=== PATIENT | male | born 1960 | race Caucasian/White ===

== ENCOUNTER 2016-08-08 11:05 | Emergency (ER) | payer BC ==
--- NOTE | ~2016-08-08 | CO ---
Unit #: [id number] #: [id number] Patient: ANTONETTE CID [id number] [address] [place], [place] [address] [id number] MR#: [id number] NAME: ANTONETTE CID. ROOM: Age: 55 Sex: M Admission Date: 08/08/2016 : 1960 Attending Physician: Gaurav Hill M.D. Primary Care Physician: Nadeem Farrell M.D. CONSULTATION REPORT REASON FOR CONSULTATION Chest pain. HISTORY OF PRESENT ILLNESS The patient is a 55-year-old male with history of remote tobacco use, who presented to the emergency department with complaints of chest pain. The patient states that the pain has been intermittent since Sunday08/05/2016. He had a recent upper respiratory and GI virus, for which he has been following with his primary care physician. He has taken amoxicillin. The patient reports that he had nausea, vomiting, diarrhea, and productive cough. After taking the antibiotic his symptoms improved. He presented today for regular followup and reported to his physician how he has been having intermittent chest pressure since Sunday. The patient states that the pressure lasts 2 to 3 minutes and then spontaneously resolved. He is unaware of any exacerbating or alleviating factors. 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 The patient have one more episode of the chest discomfort this morning prior to his visit with his primary care physician, Dr. Su. He advised the patient to go to the emergency department for further evaluation. PAST MEDICAL HISTORY Kidney stones, history of duodenal ulcer and gastritis in 2003, obstructive sleep apnea with intolerance to CPAP, osteoarthritis. PAST SURGICAL HISTORY He has had right knee surgery, sinus surgery, ureteroscopy with stent and lithotripsy in 09/2010. Tonsillectomy and left hand surgery. SOCIAL HISTORY History of smoking two packs daily and quit approximately 8 months ago. He rarely drinks alcohol. Denies any illicit drug use. He works at [employer] where he is unloading [employer]. FAMILY HISTORY His mother had a permanent pacemaker and brain aneurysm and is 72 years old and living. He has no reported family history of premature coronary artery disease. REVIEW OF SYSTEMS GENERAL: He had recent fevers, chills, nausea, vomiting, diarrhea, and productive cough 1 to 2 weeks ago. The patient took amoxicillin and his symptoms have resolved. HEENT: Denies headaches, vision loss, hearing loss, epistaxis, or Unit #: [id number] #: [id number] Patient: ANTONETTE CID dysphagia. PULMONARY: Cough as stated above. CARDIAC: Chest pain as stated above. No orthopnea or PND, palpitation or tachycardia. GI: As above. No nausea with the chest pain. EXTREMITIES: He does have leg cramps with walking and right knee pain due to arthritis. No swelling. NEURO: No dizziness, presyncope, or syncope. DIAGNOSTIC STUDIES For the current labs and tests. LABORATORY RESULTS: Point of care troponin was less than 0.05 x2. Most recent troponin was at 1305. Sodium 139, potassium 4.1, chloride 102, CO2 of 28, glucose 97, BUN 11, creatinine 0.8, AST 32, ALT 60. White blood cells 6.1, hemoglobin 15.1, hematocrit 45.3, and platelets are 237. CARDIOVASCULAR STUDIES: EKG shows normal sinus rhythm with right bundle-branch block. ASSESSMENT AND PLAN 1. Chest pain. 2. Remote tobacco use (history of two pack per day smoking, quit 8 months ago). 3. Right bundle-branch block. 4. Obstructive sleep apnea, intolerant of CPAP. Mr. Cid's case is discussed with Dr. Nash. We originally planned to monitor serial troponin and perform a Lexiscan Cardiolite in the morning. The patient refuses this stay and states that he will be fired from his job when he misses another day. He does feel he be able to come in for a scheduled outpatient stress test. We will repeat one troponin this afternoon and if this is negative, the patient will be discharged home and will be set up for an outpatient Lexiscan Cardiolite. Dictated by... Elieser Barry. for Hakeem Nash M.D. CMG/carrie TD: 08/09/2016 02:09 JOB #: [id number] CONSULTATION REPORT X X CONSULTATION REPORT
--- NOTE | ~2016-08-08 | EKG ---
PATIENT: ANTONETTE CID UNIT #: [id number] Ventricular Rate: 68 BPM Atrial Rate: 68 BPM P-R Interval: 142 ms QRS Duration: 130 ms Q-T Interval: 436 ms QTC Calculation(Bezet): 463 ms P Austin: 55 degrees Calculated R Austin: 5 degrees Calculated T Austin: 27 degrees Diagnosis Line: Normal sinus rhythm Diagnosis Line: Right bundle branch block Diagnosis Line: Abnormal ECG Diagnosis Line: No previous ECGs available Diagnosis Line: Confirmed by DAMASO MC MD ([id number]) on Diagnosis Line: 08/08/2016 4:15:46 PM INTERPRETING MD: ALEXANDRO VOGT
--- NOTE | ~2016-08-08 | CR72 ---
[facility] A Service of [facility] & [facility] RADIOLOGY TEXT RESULTS PATIENT: ANTONETTE CID LOCATION: [facility] : 60 UNIT #: [id number] AGE: [address]: Gaurav Hill MD SEX: M ORDER DR: [id number] [facility] [address] [place], [place] [address] [id number] E MR#: [id number] Acc #: [id number] NAME: ANTONETTE CID. : 1960 SEX: M STUDY DATE/TIME: 08/08/2016 12:30 UNIT: [facility] ROOM: STUDY DESCRIPTION: CR Chest Single View Portable Attending Physician: Gaurav Hill M.D. Ordering Physician: Gaurav Hill M.D. Primary Care Physician: Nadeem Farrell M.D. MEDICAL IMAGING REPORT This report is preliminary unless electronic signature is present EXAM Portable chest. DATE OF EXAM 08/08/2016 INDICATION Chest pain and pressure for 4 days. COMPARISON 06/28/2009 FINDINGS Portable view of the chest obtained. The heart size and vascularity are normal. Lungs are clear. The bones are normal. IMPRESSION No active disease. Dictated by... Pete Crowe M.D. THIS IS AN ELECTRONICALLY VERIFIED REPORT Pete Crowe M.D. at 08/08/2016 4:55 PM CHINO/dom TD: 08/08/2016 15:47 JOB #: [id number] MEDICAL IMAGING REPORT COPY
[~2016-08-08 11:05] MED LIST: BACTRIM DS TABL1 TA1 PO; FLOMAX PO; FLOMAX0.4 M1 PO; NAPROSYN500 MG PO; NO MEDICATIONS; NO MEDICATIONS PO; PERCOCET5/325 PO; TYLOX PO
[2016-08-08 11:07] LABS: BASOPHIL% 0.6 % (0-2.5); EOSINOPHIL# 0.1 X10e3 (0-0.7); EOSINOPHIL% 1.7 % (0.0-7.0); HEMATOCRIT 45.3 % (38.0-50.0); HEMOGLOBIN 15.1 gm/dL (13.0-16.0); LYMPHOCYTE# 1.1 X10e3 (1.0-3.5); LYMPHOCYTE% 18.7 % (17.0-45.0); MEAN CELL VOLUME 91.2 FL (83-96); MEAN CORPUSCULAR HEMOGLOBIN 30.4 PG (28-34); MEAN CORPUSCULAR HGB CONC 33.3 g/dL (30-36); MEAN PLATELET VOLUME 7.4 FL (6.5-11.5); MONOCYTE# 0.5 X10e3 (0-1.0); MONOCYTE% 8.5 % (3.0-12.0); NEUTROPHIL# 4.3 X10e3 (1.5-7.1); NEUTROPHIL% 70.5 % (40-75); PLATELET COUNT 237 X10e3 (140-420); RED BLOOD COUNT 4.97 X10e (3.90-5.60); RED CELL DISTRIBUTION WIDTH 14.1 % (11.0-15.5); WHITE BLOOD COUNT 6.1 X10e3 (4.0-10.5)
[2016-08-08 11:10] LABS: DIFF IND NO
[2016-08-08 11:28] LABS: ALBUMIN SERUM 4.4 g/dL (3.5-5.0); ALKALINE PHOSPHATASE 60 U/L (32-92); ALT (SGPT) 60 U/L (10-40); AST (SGOT) 32 U/L (10-42); BILIRUBIN, DIRECT 0.1 mg/dL (0.0-0.2); BILIRUBIN,INDIRECT 0.9 mg/dL (0.0-0.9); BLOOD UREA NITROGEN 11 mg/dL (9-23); BUN/CREATININE RATIO 13.75; CARBON DIOXIDE 28 mmol/L (22-31); CHLORIDE 102 mmol/L (100-111); CREATININE SERUM 0.8 mg/dL (0.6-1.4); GLOM FILT RATE Estimated ABOVE60 mL/min (>60); GLUCOSE FASTING 97 mg/dL (70-110); POTASSIUM 4.1 mmol/L (3.5-5.1); PROTEIN TOTAL SERUM 7.1 g/dL (6.0-8.3); SODIUM 139 mmol/L (135-145)
[2016-08-08 12:33] LABS: POC - CKMB <1.0 ng/mL (0.0-7.9); POC - TROPONIN <0.05 ng/mL (<=0.05)
[2016-08-08 13:06] LABS: POC - CKMB 1.7 ng/mL (0.0-7.9); POC - TROPONIN <0.05 ng/mL (<=0.05)
== END 2016-08-08 15:20 | disposition home or self-care (01) ==
LOC: CED 11:05
PROVIDERS: Emergency Medicine
DX: R07.9 Chest pain, unspecified (principal); Z87.891 Personal history of nicotine dependence; Z88.5 Allergy status to narcotic agent
CPT/HCPCS: 71010; 80048; 80076; 82553; 84484; 85025; 93005; 99284